=== PATIENT | male | born 1960 | race Caucasian/White ===

== ENCOUNTER 2024-08-16 12:36 | Outpatient (AMB) | payer OTHER, SELFPAY ==
--- NOTE | 2024-08-16 12:47 | A.OFFPC_ITS ---
Vital Signs 08/16/24 12:51 Height 5 ft 8.5 in Weight 227 lb 6 oz BMI 34.1 BP 140/90 H Blood Pressure Location Lt brachial Position Sitting Pulse 84 Pulse Source Pulse Oximeter Temp 97.3 F Temp Source Temporal Artery Scan Pulse Oximetry (%) 98 Oxygen Delivery Method Room Air Intake Visit Reasons: establish care Intake Note: Patient is a new patient here to establish care for wellness visit. Transferring care from Dr Gamaliel Guerrero ([facility]). Medical records have been requested and have not received. 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 Chief I Dispatcher: Not Required per policy Accompanied by: Self / Same As Patient Allergies No Known Allergies Allergy (Verified 08/16/24 13:14) Medication List - Last Reconciled 08/16/24 by COCO Salcido No Known Home Meds Tobacco use date assessed: 08/16/24 Dental Screening Dental Screen Date: 08/16/24 Did you have a dental visit in the last 12 months?: No Did you have a dental problem in the last 6 months where you did not have access to dental care?: No Was dental information given to patient?: No HPI establish care HPI Details Previous PCP: Gamaliel Last visit:12 years Last PE: Specialist: colonscopy OBGYN: n/a Past medical history: Hemrrhoids, 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 Reports that all the weight of transition was on his arm but he did not want to transitioned to fall so he did not move. Reports that the area seems to have gotten slightly bigger. Radiating pain down his arm when the areas squeezed. No discoloration noted. Mobile lump. soft tissue ultrasound of the anterior left forearm. Reports left shoulder pain with decreased ROM. Reports that he is unable to lift his arm above his head. Crepitus sound with range of motion intermittently. Reports that this has been going on for 4 years but it is getting worse. Reports that he could tell when the weather is changing because the pain increases. will get and xray of the shoulder. Reports that he is concerned about his weight as well. Reports that he purchase a treadmill but has not started using it as yet. Patient reports that he works all day by the time he gets home he is extremely tired. But he noticed that he has been putting on more weight and would like to lose it. Patient blood pressure was elevated in office. Patient reports that she checks his blood pressure at home often and it is usually in the 128/74 range. His blood pressure in office was 140/90 with a pulse of 84. We will continue to monitoring [facility] Medical History Hemorrhoids Leukemia Surgical History (Updated 08/16/24 @ 13:01 by JOSEPH Farr) History of colonoscopy Family History (Updated 08/16/24 @ 15:21 by COCO Salcido) Mother Diabetes Social History (Updated 08/16/24 @ 13:01 by JOSEPH Farr) Housing: House Alcohol intake: current Alcohol intake frequency: a few times a month Patient Tobacco Use Status: Former Tobacco user (2018) e-Cigarette/Vaping Use: Never Used Second Hand Smoke Exposure: No service: No Current occupational status: employed Current occupation: Auto dismateler Cognitive needs: No Hearing needs: No Vision needs: Yes (Reading glasses) Questionnaire PHQ-9 Over the last 2 weeks, how often have you been bothered by any of the following problems? 1. Little interest or pleasure in doing things: not at all 2. Feeling down, depressed, or hopeless: not at all 3. Trouble falling or staying asleep, or sleeping too much: not at all 4. Feeling tired or having little energy: several days 5. Poor appetite or overeating: not at all 6. Feeling bad about yourself - or that you are a failure or have let yourself or your family down: not at all 7. Trouble concentrating on things, such as reading the newspaper or watching television: not at all 8. Moving or speaking so slowly that other people could have noticed. Or the opposite - being so fidgety or restless that you have been moving around a lot more than usual: not at all 9. Thoughts that you would be better off or of hurting yourself in some way: not at all Total score: 1 Depression Screening Interpretation: Positive Depression Screening Done: Yes 56411 - PHQ-9 Billing: Yes Source: Developed by Drs. Matthew L. Alejandra Goldstein Kurt Kroenke and colleagues, with an educational etienne from [employer]. Thrive Questionnaire Date Thrive assessed: 08/16/24 I am a: Patient What is your living situation today?: I have a steady place to live Within the past 12 months, did the food you bought not last and you didn't have the money to get more?: Never true Within the past 12 months, did you worry whether your food would run out before you got money to buy more?: Never true Do you have trouble paying for medicines?: No Do you have trouble getting transportation to medical appointments?: No Do you have trouble paying your heating and electricity bill?: No Do you have trouble taking care of your child, family member or friend?: No Do you have trouble with day-to-day activities such as bathing, preparing meals, shopping, managing finances, etc.?: No Are you currently unemployed and looking for a job?: No Are you interested in more education?: No Please select the resources that you would like help with: None Currently or been in a relationship where the following occur: No concerns reported THRIVE Score: 0 AUDIT C Alcohol Use Questionnaire (AUDIT-C) 1. How often do you have a drink containing alcohol?: Monthly or less 2. How many drinks containing alcohol do you have on a typical day when you are drinking?: 1 or 2 Total Score: 1 PETRA-7 AMB Questionnaire PETRA-7 Date PETRA - 7 assessed: 08/16/24 Feeling nervous, anxious, or on edge: 0 = Not at all Not being able to stop or control worryin = Not at all Worrying too much about different things: 0 = Not at all Trouble relaxin = Not at all Being so restless that it is hard to sit still: 0 = Not at all Becoming easily annoyed or irritable: 0 = Not at all Feeling afraid as if something awful might happen: 0 = Not at all Total PETRA-7 score (0-4 normal; 5-9 mild; 10-14 moderate; 15-21 severe): 0 Source: Developed by Alejandra Worthy Kurt Kroenke and colleagues, with an educational etienne from [employer]. Review of Systems Const Denies headache(s) Eyes Denies loss of vision ENT Denies vertigo, Denies dizziness, Denies headache(s) and Denies sore throat Card Denies chest pain, Denies leg edema and Denies lightheadedness Resp Denies cough, Denies hemoptysis and Denies wheezing GI Denies abdominal pain, Denies melena, Denies constipation, Denies diarrhea and Denies vomiting Denies dysuria, Denies urinary frequency and Denies urinary urgency Musc Reports arthralgias (Left shoulder), Denies joint swelling, Reports limited range of motion (Left shoulder), Denies numbness, Reports stiffness (Left shoulder) and Denies tingling Skin/Breast Reports other (Lump to left inner forearm) Neuro Denies Abnormal speech present, Denies behavioral changes, Denies vertigo, Denies dizziness, Denies headache(s), Denies loss of vision, Denies memory loss, Denies numbness and Denies tingling Psych Denies anxiety, Denies behavioral changes, Denies depression, Denies memory loss and Denies panic attacks Erik/Lymph Denies easy bleeding and Denies easy bruising Aller/Immun Denies wheezing Physical exam (Primary Care) Vital Signs: Last Vital Signs Temp 97.3 F 08/16/24 12:51 Pulse 84 08/16/24 12:51 BP 140/90 H 08/16/24 12:51 Pulse Ox 98 08/16/24 12:51 Oxygen Delivery Method Room Air 08/16/24 12:51 BMI result Body Mass Index 34.1 Tobacco/Smoking Status: Tobacco use Status Tobacco use date assessed 08/16/24 08/16/24 13:03 Patient Tobacco Use Status Former Tobacco user (2018) 08/16/24 13:03 e-Cigarette/Vaping Use Never Used 08/16/24 13:03 PHQ-9: PHQ-9 Score PHQ-9: Total score 1 08/16/24 13:03 Depression Screening Interpretation: Positive Thrive Assessment: Date of Thrive Assessment Date Thrive assessed 08/16/24 08/16/24 13:03 Currently or been in a relationship where the following occur: No concerns reported Const General: healthy appearing, no acute distress, alert and awake Nutritional Appearance: well nourished Orientation/consciousness: oriented to person, oriented to place and oriented to time HENMT Ears: TM's normal bilaterally General nose exam: Normal nasal mucous membranes and turbinates present Eyes Conjunctivae: conjunctivae normal Sclerae: sclerae normal Pupils: Equal, round and reactive pupils present Neck Neck: Yes no lymphadenopathy and Yes no JVD Thyroid: Thyroid normal Carotids: no bruits Resp Effort & Inspection: normal respiratory effort and not tachypneic Auscultation: no crackles, no rales, no rhonchi and no wheezes Cardio Rate: regular rate Rhythm: regular rhythm Heart sounds: no murmurs and normal S1 and S2 GI Palpation (GI): Soft to palpation, nontender, no hepatomegaly and no splenomegaly Auscultation: normal bowel sounds Back/Spine/Pelvis Cervical Spine: No Cervical spine tenderness Thoracic/Lumbar Spine: No thoracic spinal tenderness and No lumbar spinal tenderness Skin General skin exam: no rashes or lesions noted and dry skin Neuro General: oriented to person, oriented to place and oriented to time Cranial nerves: Yes Equal, round and reactive pupils present Speech: No Abnormal speech present Gait exam (Neuro): Normal gait present Motor exam (neuro): no tremor noted Extrem Right upper extremity: full ROM Left upper extremity: shoulder/upper arm Details: abnormal ROM (Unable to lift arm above head, crepitus with range of motion intermittently); ROM limited Right lower extremity: full ROM; no edema Left lower extremity: full ROM; no edema Psych Mental Status: mental status grossly normal Speech and movement: Normal speech and movement present Affect: normal affect Attitude: cooperative Thought process: Normal thought process present Coding Level of Care Code New Pt Level 3 (42927) Diagnoses Hemorrhoids, unspecified hemorrhoid type K64.9 Hemorrhoid type: unspecified Localized swelling, mass and lump, left upper limb R22.32 Left shoulder pain, unspecified chronicity M25.512 Chronicity: unspecified Obesity (BMI 30.0-34.9) E66.811 Additional Codes PHQ-9 - 41732 - PHQ-9 Billing: Yes ([id number]) Time Spent (min) 33 Assessment & Plan Assessment & Plan (1) Hemorrhoids: Code(s): K64.9 - Unspecified hemorrhoids Category: Medical Qualifiers: Hemorrhoid type: unspecified Qualified Code(s): K64.9 - Unspecified hemorrhoids Plan: Stable. On and off (2) Localized swelling, mass and lump, left upper limb: Code(s): R22.32 - Localized swelling, mass and lump, left upper limb Category: Medical Plan: Soft tissue ultrasound ordered to further evaluate (3) Left shoulder pain: Code(s): M25.512 - Pain in left shoulder Category: Medical Qualifiers: Chronicity: unspecified Qualified Code(s): M25.512 - Pain in left shoulder Plan: Left shoulder x-ray ordered (4) Obesity (BMI 30.0-34.9): Code(s): E66.811 - Obesity, class 1 Category: Medical Plan: Encouraged to exercise for at least 30 minutes a day/5 days a week Healthy eating discussed. Encouraged to eat fruits/vegetables, protein- fish/baked chicken, and to avoid salty/fried foods, sweets, caffeine and carbohydrates. Encouraged to increase water intake 6-8 glasses a day Plan We will order labs and of the patient returned physical examination Orders: Orders Comprehensive Ber[place]. Panel Fast Today Z00.00 - Encounter for general adult medical examination without abnormal findings Lipid Panel Today Z00.00 - Encounter for general adult medical examination without abnormal findings Vitamin D 25-OH Total Today Z00.00 - Encounter for general adult medical examination without abnormal findings Glucose Fasting Today Z00.00 - Encounter for general adult medical examination without abnormal findings UA CC w/rflx Micro + Cult Today Z00.00 - Encounter for general adult medical examination without abnormal findings PSA,Total (Free>4and<10) Today Z00.00 - Encounter for general adult medical examination without abnormal findings XR shoulder LT min 2V Today M25.512 - Pain in left shoulder US extremity nonvascular Today R22.32 - Localized swelling, mass and lump, left upper limb Complete Blood Count Auto Diff Today Z00.00 - Encounter for general adult medical examination without abnormal findings TSH reflex Free T4 Today Z00.00 - Encounter for general adult medical examination without abnormal findings Medications: Discontinued hydroxyzine HCl Discontinued Reason: Patient Completed Course 25 mg PO BEDTIME 2 weeks 14 tabs 0RF G47.9 - Sleep disorder, unspecified albuterol sulfate 90 mcg/actuation Discontinued Reason: Patient Completed Course 1 inh inhalation QID PRN 6.7 grams 1RF shortness of breath or wheezing R06.00 - Dyspnea, unspecified
[2024-08-16 12:51] VITALS: BP 140/90; PULSE 84; TEMP 36.3; O2SAT 98; BMI 34.1
== END 2024-08-16 13:46 | disposition home or self-care (01) ==
LOC: HO.HMCH 12:37
PROVIDERS: PCP Internal Medicine Medical Oncology
DX: K64.9 Unspecified hemorrhoids (principal); E66.811 Obesity, class 1; Z68.34 Body mass index [BMI] 34.0-34.9, adult; R22.32 Localized swelling, mass and lump, left upper limb; M25.512 Pain in left shoulder

== ENCOUNTER → 2024-08-16 12:36 | Outpatient (BNVA) | payer OTHER, SELFPAY | PROVIDERS: PCP Internal Medicine Medical Oncology | DX: M25.512 Pain in left shoulder (principal); K64.9 Unspecified hemorrhoids; R22.32 Localized swelling, mass and lump, left upper limb; E66.811 Obesity, class 1; Z68.34 Body mass index [BMI] 34.0-34.9, adult | CPT/HCPCS: 96127; 99202 ==

== ENCOUNTER 2024-09-13 14:18 | Outpatient (REF) | payer OTHER, SELFPAY ==
--- NOTE | ~2024-09-13 | US_ITS ---
EXAMINATION: Ultrasound extremity, nonvascular. Limited CLINICAL INFORMATION: Localized swelling/mass/lump, left upper extremity. TECHNIQUE: Real-time ultrasound of the region of concern using a linear transducer with grayscale and color Doppler technique. COMPARISON: None FINDINGS: There is a well-defined, ovoid shaped, 1.5 x 1.2 x 1.5 cm, hypoechoic soft tissue lesion in the region of concern mid segment of the left forearm. There is flow on color Doppler interrogation. US/US extremity nonvascular IMPRESSION: 1.5 cm, nonspecific, solid lesion within the soft tissues left forearm. Consider benign versus malignant. Electronically signed by: Abisai Moralez MD 09/13/2024 02:54 PM EDT
--- NOTE | ~2024-09-13 | XR_ITS ---
EXAMINATION: XR SHOULDER, LEFT CLINICAL INFORMATION: M25.512 - Pain in left shoulder COMPARISON: None available. TECHNIQUE: AP external rotation, Grashey, scapular Y, and axillary views of the left shoulder. FINDINGS: No acute cortical disruption or malalignment. Focal well-corticated (3 mm calcification at the coracoid process. No lytic or blastic lesions. XR/XR shoulder LT min 2V IMPRESSION: Questionable calcific bursitis, subcoracoid. Electronically signed by: Abisai Moralez MD 09/13/2024 02:55 PM EDT
== END 2024-09-13 14:19 | disposition home or self-care (01) ==
LOC: HO.US 14:18
DX: R22.32 Localized swelling, mass and lump, left upper limb (principal); M25.512 Pain in left shoulder
CPT/HCPCS: 73030; 76882

== ENCOUNTER → 2024-09-13 14:22 | Outpatient (BNV) | payer OTHER, SELFPAY | PROVIDERS: Visit Provider Radiology Diagnostic Radiology | DX: M79.89 Other specified soft tissue disorders (principal); M25.512 Pain in left shoulder | CPT/HCPCS: 73030; 76882 ==

== ENCOUNTER 2024-09-27 06:25 | Outpatient (REF) | payer OTHER, SELFPAY ==
[2024-09-27 10:10] LABS: MANUAL DIFF FLAG NO
[2024-09-27 10:33] LABS: Appearance Urine Clear; Color Urine Yellow; Glucose Urine UA Negative (Negative); Leukocyte Esterase Urine Negative (Negative); Nitrite Urine Negative (Negative); PH 5.5 (5.0-9.0); Urine Blood Negative (Negative); Urine Ketones Negative (Negative); Urine Protein Negative (Neg-Trace)
[2024-09-27 10:37] LABS: Basophils Absolute Auto 0.1 X10*3/uL (0.0-0.2); Eosinophils Absolute Auto 0.2 X10*3/uL (0.0-0.4); Eosinophils Percent Auto 2.5 % (0-4); Hematocrit 49.9 % (42.0-52.0); Hemoglobin 16.1 g/dl (14.0-18.0); Imm Gran Abs Auto 0.02 X10*3/uL (0.00-0.03); Imm Gran Pct Auto 0.3 % (0.0-0.4); Lymphocytes Absolute Auto 2.2 X10*3/uL (1.2-4.9); Lymphocytes Percent Auto 31.9 % (20-40); Mean Corpuscular HGB Conc 32.3 g/dl (31.0-36.0); Mean Platelet Volume 12.4 fL (9.4-12.4); Monocytes Absolute Auto 0.6 X10*3/uL (0.1-1.2); Neutrophils Absolute Auto 3.7 x10*3/uL (2.0-8.3); Neutrophils Percent Auto 55.3 % (45-73); Platelet Count 219 X10*3/uL (160-400); Red Cell Distribution Width 12.8 % (11.0-16.0); White Blood Count 6.8 X10*3/uL (4.8-10.8)
[2024-09-27 11:01] LABS: PSA,Total (Free>4and<10) 0.39 ng/mL (0.00-4.00)
[2024-09-27 11:15] LABS: Alanine Aminotransferase 27 U/L (0-40); Albumin Level 4.4 g/dL (3.5-5.0); Alkaline Phosphatase 80 U/L (39-117); Anion Gap 11 (12-20); Aspartate Amino Transferase 28 U/L (5-37); Bilirubin Total 0.6 mg/dL (0.0-1.0); Blood Urea Nitrogen 14 mg/dL (9-16); Calcium 9.4 mg/dL (8.4-10.2); Carbon Dioxide 25 mmol/L (22-29); Chloride 106 mmol/L (96-108); Cholesterol 211 mg/dL (<200); Estimated Glomerular Filt Rate > 60; Glucose Fasting 137 mg/dL (60-99); HDL Cholesterol 45 mg/dL (>40); LDL Cholesterol Calculated 139 mg/dL (<100); Potassium 4.1 mmol/L (3.3-5.1); Sodium 138 mmol/L (135-145); TSH reflex Free T4 2.82 uIU/mL (0.32-4.0); Total Protein 7.6 g/dL (6.5-8.0); Triglycerides 138 mg/dL (<150); Vitamin D 25-OH Total 43.2 ng/mL (>30)
== END 2024-09-27 06:26 | disposition home or self-care (01) ==
LOC: HO.HMGCLDS 06:25
DX: Z00.00 Encounter for general adult medical examination without abnormal findings (principal)
CPT/HCPCS: 36415; 80053; 80061; 81003; 82306; 84153; 84443; 85025

== ENCOUNTER 2024-12-06 11:17 | Outpatient (REF) | payer OTHER, SELFPAY ==
[2024-12-06 13:34] LABS: Hemoglobin A1C 195.4052 umol/L; Total Hemoglobin (HGBA1C) 4178.1264 umol/L
== END 2024-12-06 11:18 | disposition home or self-care (01) ==
LOC: HO.HMGCLDS 11:17
DX: R73.01 Impaired fasting glucose (principal)
CPT/HCPCS: 36415; 83036

== ENCOUNTER 2024-12-13 14:13 | Outpatient (AMB) | payer OTHER, SELFPAY ==
[2024-12-13 14:23] VITALS: BP 164/90; PULSE 78; RESP 18; TEMP 36.3; O2SAT 94; BMI 33.3
--- NOTE | 2024-12-13 14:23 | A.OFFPC_ITS ---
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 Snellen: Right: Left: Corrected vision: STI screening: Colonoscopy:last one about 11 years ago. Reports that they all been good, reports that he will not dothis again. Reports that he has hemorrhoids and get blood every once in awhile so he wont to the cologuard neither. Pap Smer:n/a PHQ-9: Flu:does not usually take the flu vaccine COVID: had not had any of the vaccine and he is not interested in getting any Tdap: reports that he had this about 9 years ago Diet: Reports cutting out sweats and high cholesterol foods Exercise: He has been swimming in his pool. The patient is a 64-year-old male presenting for evaluation of hypertension and prediabetes management. He reports a recent increase in blood pressure, which he attributes to stress over the past few days, and has been monitoring his blood pressure at home, noting it to be lower than during clinic visits. The patient has a history of prediabetes, with a recent A1c level of 6.4%. He reports a significant reduction in soda consumption, switching to water, milk, and tea, which he believes has contributed to a slight weight loss, and notes that his blood glucose levels are higher in the morning but stabilize throughout the day. The patient has been diagnosed with calcified bursitis in the shoulder, resulting in reduced range of motion and intermittent pain, and has not undergone any physical therapy for this condition. The patient has a history of hyperlipidemia, with a total cholesterol level of 211 mg/dL and LDL cholesterol contributing to this elevation. He has made dietary changes, including increased fish consumption and reduced intake of fried foods, to manage his cholesterol levels. The patient has a history of COVID-19 infection, having contracted the virus twice, with the first episode being more severe, and has not received any COVID- 19 vaccinations. The patient reports hemorrhoids with occasional bleeding, which he is concerned may affect the results of a stool-based colon cancer screening test. pt for shoulder and already has an appt with Dr. Guevara for left forearm mass. Blood pressures at home: 121/60, 122/60, 136/70, 127/60, 124/57 [facility] Medical History (Updated 01/09/25 @ 22:52 by COCO Salcido) Lipoma of left forearm Hemorrhoids Leukemia Surgical History History of colonoscopy Family History Mother Diabetes Social History Housing: House Alcohol intake: current Alcohol intake frequency: a few times a month Patient Tobacco Use Status: Former Tobacco user (2018) e-Cigarette/Vaping Use: Never Used Second Hand Smoke Exposure: No service: No Current occupational status: employed Current occupation: Auto dismateler Cognitive needs: No Hearing needs: No Vision needs: Yes (Reading glasses) Questionnaire PHQ-9 Over the last 2 weeks, how often have you been bothered by any of the following problems? 1. Little interest or pleasure in doing things: not at all 2. Feeling down, depressed, or hopeless: not at all 3. Trouble falling or staying asleep, or sleeping too much: not at all 4. Feeling tired or having little energy: several days 5. Poor appetite or overeating: not at all 6. Feeling bad about yourself - or that you are a failure or have let yourself or your family down: not at all 7. Trouble concentrating on things, such as reading the newspaper or watching television: not at all 8. Moving or speaking so slowly that other people could have noticed. Or the opposite - being so fidgety or restless that you have been moving around a lot more than usual: not at all 9. Thoughts that you would be better off or of hurting yourself in some way: not at all Total score: 1 Depression Screening Interpretation: Positive Depression Screening Done: Yes Source: Developed by Drs. Matthew Goldstein, Alejandra Rodriguez, Adebayo Naranjo and colleagues, with an educational etienne from [employer]. Thrive Questionnaire Date Thrive assessed: 12/13/24 I am a: Patient What is your living situation today?: I have a steady place to live Within the past 12 months, did the food you bought not last and you didn't have the money to get more?: Never true Within the past 12 months, did you worry whether your food would run out before you got money to buy more?: Never true Do you have trouble paying for medicines?: No Do you have trouble getting transportation to medical appointments?: No Do you have trouble paying your heating and electricity bill?: No Do you have trouble taking care of your child, family member or friend?: No Do you have trouble with day-to-day activities such as bathing, preparing meals, shopping, managing finances, etc.?: No Are you currently unemployed and looking for a job?: No Are you interested in more education?: No Please select the resources that you would like help with: None Currently or been in a relationship where the following occur: No concerns reported THRIVE Score: 0 AUDIT C Alcohol Use Questionnaire (AUDIT-C) 1. How often do you have a drink containing alcohol?: Monthly or less 2. How many drinks containing alcohol do you have on a typical day when you are drinking?: 1 or 2 3. How often do you have six or more drinks on one occasion?: Never Total Score: 1 PETRA-7 AMB Questionnaire PETRA-7 Date PETRA - 7 assessed: 12/13/24 Feeling nervous, anxious, or on edge: 0 = Not at all Not being able to stop or control worryin = Not at all Worrying too much about different things: 0 = Not at all Trouble relaxin = Not at all Being so restless that it is hard to sit still: 0 = Not at all Becoming easily annoyed or irritable: 0 = Not at all Feeling afraid as if something awful might happen: 0 = Not at all Total PETRA-7 score (0-4 normal; 5-9 mild; 10-14 moderate; 15-21 severe): 0 Source: Developed by Drs. Matthew Goldstein, Alejandra Rodriguez, Adebayo Naranjo and colleagues, with an educational etienne from [employer]. Review of Systems Const Denies headache(s) Eyes Denies loss of vision ENT Denies vertigo, Denies dizziness, Denies headache(s) and Denies sore throat Card Denies chest pain, Denies leg edema and Denies lightheadedness Resp Denies cough, Denies hemoptysis and Denies wheezing GI Denies abdominal pain, Denies melena, Denies constipation, Denies diarrhea and Denies vomiting Denies dysuria, Denies urinary frequency and Denies urinary urgency Musc Reports arthralgias (Left shoulder), Denies joint swelling, Denies numbness, Reports stiffness (Left shoulder-unable to raise arm above head) and Denies tingling Skin/Breast Reports lesions (Left inner forearm lump) Neuro Denies Abnormal speech present, Denies behavioral changes, Denies vertigo, Denies dizziness, Denies headache(s), Denies loss of vision, Denies memory loss, Denies numbness and Denies tingling Psych Denies anxiety, Denies behavioral changes, Denies depression, Denies memory loss and Denies panic attacks Erik/Lymph Denies easy bleeding and Denies easy bruising Aller/Immun Denies wheezing Physical exam (Primary Care) Vital Signs: Last Vital Signs Temp 97.3 F 12/13/24 14:23 Pulse 78 12/13/24 14:23 Resp 18 12/13/24 14:23 BP 164/90 H 12/13/24 14:23 Pulse Ox 94 12/13/24 14:23 Oxygen Delivery Method Room Air 12/13/24 14:23 BMI result Body Mass Index 33.3 Tobacco/Smoking Status: Tobacco use Status Tobacco use date assessed 12/13/24 12/13/24 14:31 Patient Tobacco Use Status Former Tobacco user (2018) 12/13/24 14:31 e-Cigarette/Vaping Use Never Used 12/13/24 14:31 PHQ-9: PHQ-9 Score PHQ-9: Total score 1 12/13/24 15:00 Depression Screening Interpretation: Positive Thrive Assessment: Date of Thrive Assessment Date Thrive assessed 12/13/24 12/13/24 14:31 Currently or been in a relationship where the following occur: No concerns reported Const General: healthy appearing, no acute distress, alert and awake Nutritional Appearance: well nourished Orientation/consciousness: oriented to person, oriented to place and oriented to time HENMT Ears: TM's normal bilaterally General nose exam: Normal nasal mucous membranes and turbinates present Eyes Conjunctivae: conjunctivae normal Sclerae: sclerae normal Pupils: Equal, round and reactive pupils present Neck Neck: Yes no lymphadenopathy and Yes no JVD Thyroid: Thyroid normal Carotids: no bruits Resp Effort & Inspection: normal respiratory effort and not tachypneic Auscultation: no crackles, no rales, no rhonchi and no wheezes Cardio Rate: regular rate Rhythm: regular rhythm Heart sounds: no murmurs and normal S1 and S2 GI Palpation (GI): Soft to palpation, nontender, no hepatomegaly and no splenomegaly Auscultation: normal bowel sounds General: Yes no CVA tenderness Back/Spine/Pelvis Back: no CVA tenderness Thoracic/Lumbar Spine: thoracic and lumbar spine normal to inspection Skin General skin exam: dry skin Lesions: lesion noted (Lump at the inner forearm) Neuro General: oriented to person, oriented to place and oriented to time Cranial nerves: Yes Equal, round and reactive pupils present Speech: No Abnormal speech present Gait exam (Neuro): Normal gait present Motor exam (neuro): no tremor noted Extrem Right upper extremity: full ROM Left upper extremity: shoulder/upper arm Details: tenderness (Unable to raise arm above it) Location: over the coracoid process, abnormal ROM and crepitus (With range of motion) Right lower extremity: full ROM; no edema Left lower extremity: full ROM; no edema Psych Mental Status: mental status grossly normal Speech and movement: Normal speech and movement present Affect: normal affect Attitude: cooperative Thought process: Normal thought process present Results Reviewed Results Reviewed: Laboratory Tests 09/27/24 09/27/24 12/06/24 06:21 06:31 11:24 WBC 6.8 RBC 5.20 Hgb 16.1 Hct 49.9 MCV 96.0 MCH 31.0 MCHC 32.3 RDW 12.8 Plt Count 219 Sodium 138 Potassium 4.1 Chloride 106 Carbon Dioxide 25 Anion Gap 11 L BUN 14 Creatinine 0.96 Estim Creat Clear Calc Not Reportable Estimated GFR > 60 Fasting Glucose 137 H Hemoglobin A1c % 6.4 H Calcium 9.4 Total Bilirubin 0.6 AST 28 ALT 27 Alkaline Phosphatase 80 Total Protein 7.6 Albumin 4.4 Triglycerides 138 Cholesterol 211 H LDL Cholesterol, Calc 139 H HDL Cholesterol 45 Total PSA 0.39 25-OH Vitamin D Total 43.2 TSH 2.82 Urine Color Yellow Urine Appearance Clear Urine pH 5.5 Ur Specific [place] 1.010 Urine Protein Negative Urine Glucose (UA) Negative Urine Ketones Negative Urine Blood Negative Urine Nitrite Negative Ur Leukocyte Esterase Negative Coding Level of Care Code Est Pt Prev Care 40-64y(18592) Diagnoses Annual physical exam Z00.00 Hemorrhoids, unspecified hemorrhoid type K64.9 Hemorrhoid type: unspecified Localized swelling, mass and lump, left upper limb R22.32 Left shoulder pain, unspecified chronicity M25.512 Chronicity: unspecified Obesity (BMI 30.0-34.9) E66.811 Hypertension, unspecified type I10 Hypertension type: unspecified Hyperlipidemia, unspecified hyperlipidemia type E78.5 Hyperlipidemia type: unspecified Prediabetes R73.03 Lipoma of left forearm D17.22 Time Spent (min) 41 Assessment & Plan Assessment & Plan (1) Annual physical exam: Code(s): Z00.00 - Encounter for general adult medical examination without abnormal findings Category: Medical Plan: Preventative guidelines and recent labs reviewed with the patient. His last colonoscopy was about 11 years ago. Reports that they all been good prior, and he does not plan on doing this test again. Reports that he has hemorrhoids and get blood in his stool every once in awhile so he won't do the cologuard neither. (2) Hemorrhoids: Code(s): K64.9 - Unspecified hemorrhoids Category: Medical Qualifiers: Hemorrhoid type: unspecified Qualified Code(s): K64.9 - Unspecified hemorrhoids Plan: Stable. On and off. Encouraged Sitz bath and preparation H ointment as needed (3) Localized swelling, mass and lump, left upper limb: Code(s): R22.32 - Localized swelling, mass and lump, left upper limb Category: Medical Plan: Left upper arm 1.5 cm, nonspecific, solid lesion with the soft tissues left forearm. Consider benign versus malignant on 09/13/2024 ultrasound. The patient was referred to General surgery prior and already has an appointment. (4) Left shoulder pain: Code(s): M25.512 - Pain in left shoulder Category: Medical Qualifiers: Chronicity: unspecified Qualified Code(s): M25.512 - Pain in left shoulder Plan: X-ray of left shoulder showed a questionable calcified bursitis, subcoracoid. We will refer the patient to Orthopedics. (5) Obesity (BMI 30.0-34.9): Code(s): E66.811 - Obesity, class 1 Category: Medical Plan: Encouraged to exercise for at least 30 minutes a day/5 days a week Healthy eating discussed. Encouraged to eat fruits/vegetables, protein- fish/baked chicken, and to avoid salty/fried foods, sweets, caffeine and carbohydrates. Encouraged to increase water intake 6-8 glasses a day (6) HTN (hypertension): Code(s): I10 - Essential (primary) hypertension Category: Medical Qualifiers: Hypertension type: unspecified Qualified Code(s): I10 - Essential (primary) hypertension Plan: Blood pressure 164/90 in office. Recorded blood pressures at home are significantly lower. We will continue to monitor blood pressure. Encouraged low-salt diet. Decrease caffeine intake. (7) HLD (hyperlipidemia): Code(s): E78.5 - Hyperlipidemia, unspecified Category: Medical Qualifiers: Hyperlipidemia type: unspecified Qualified Code(s): E78.5 - Hyperlipidemia, unspecified Plan: Total cholesterol 211 and LDL 139 Discussed lifestyle modifications including dietary changes and physical activity (8) Prediabetes: Code(s): R73.03 - Prediabetes Category: Medical Plan: Fasting glucose was 137. A1c done in office was 6.4% Discussed with the patient that he is at the prediabetic range and needs to cut back on sugars and carbohydrate We will check fasting glucose and A1c in 3 months (9) Lipoma of left forearm: Code(s): D17.22 - Benign lipomatous neoplasm of skin and subcutaneous tissue of left arm Category: Medical Plan: Follow up with General surgery as scheduled Plan The patient will continue monitoring his blood pressure at home, focusing on stress management to help control hypertension. For prediabetes, he is advised to maintain dietary changes, including reduced soda intake and increased water consumption, and to continue monitoring blood glucose levels. Regarding calcified bursitis, a referral to orthopedics for evaluation and potential physical therapy is recommended to improve shoulder range of motion and manage pain. The patient is encouraged to continue swimming as a form of exercise. For hyperlipidemia, dietary modifications such as increased fish intake and reduced fried foods are advised, with a follow-up on cholesterol levels in a few months. The patient is advised to consider an eye examination due to the lack of recent check-ups. He is also informed about the potential impact of hemorrhoids on s tool-based colon cancer screening results and the option to avoid such tests if concerned about false positives. Patient was informed and verbally consented to the use of an ambient scribe for clinic note documentation during this visit. Orders: Orders Hemoglobin A1c 3 Months R73.01 - Impaired fasting glucose, E66.811 - Obesity, class 1, E78.5 - Hyperlipidemia, unspecified, R73.03 - Prediabetes Comprehensive [place]. Panel Fast 3 Months R73.01 - Impaired fasting glucose, E66.811 - Obesity, class 1, E78.5 - Hyperlipidemia, unspecified, R73.03 - Prediabetes Lipid Panel 3 Months R73.01 - Impaired fasting glucose, E66.811 - Obesity, class 1, E78.5 - Hyperlipidemia, unspecified, R73.03 - Prediabetes Complete Blood Count Auto Diff 3 Months R73.01 - Impaired fasting glucose, E66.811 - Obesity, class 1, E78.5 - Hyperlipidemia, unspecified, R73.03 - Prediabetes UA CC w/rflx Micro + Cult 3 Months R73.01 - Impaired fasting glucose, E66.811 - Obesity, class 1, E78.5 - Hyperlipidemia, unspecified, R73.03 - Prediabetes Patient Instructions: - Monitor blood pressure at home regularly and manage stress to help control hypertension. - Maintain dietary changes, including reducing soda intake and increasing water consumption, to manage prediabetes. - Follow up with orthopedics for evaluation of calcified bursitis and consider physical therapy. - Continue swimming as a form of exercise. - Follow dietary modifications to manage cholesterol levels and plan for a follow-up in a few months. - Consider scheduling an eye examination due to the lack of recent check-ups.
== END 2024-12-13 15:32 | disposition home or self-care (01) ==
LOC: HO.HMCH 14:14
DX: Z00.00 Encounter for general adult medical examination without abnormal findings (principal); K64.9 Unspecified hemorrhoids; E66.811 Obesity, class 1; Z68.33 Body mass index [BMI] 33.0-33.9, adult; R22.32 Localized swelling, mass and lump, left upper limb; M25.512 Pain in left shoulder; I10 Essential (primary) hypertension; E78.5 Hyperlipidemia, unspecified; R73.03 Prediabetes; D17.22 Benign lipomatous neoplasm of skin and subcutaneous tissue of left arm

== ENCOUNTER → 2024-12-13 14:13 | Outpatient (BNVA) | payer OTHER, SELFPAY | DX: Z00.00 Encounter for general adult medical examination without abnormal findings (principal); K64.9 Unspecified hemorrhoids; R22.32 Localized swelling, mass and lump, left upper limb; M25.512 Pain in left shoulder; E66.811 Obesity, class 1; Z68.33 Body mass index [BMI] 33.0-33.9, adult; I10 Essential (primary) hypertension; E78.5 Hyperlipidemia, unspecified; R73.03 Prediabetes; D17.22 Benign lipomatous neoplasm of skin and subcutaneous tissue of left arm; Z13.31 Encounter for screening for depression; Z13.39 Encounter for screening examination for other mental health and behavioral disorders | CPT/HCPCS: 99396 ==

== ENCOUNTER 2025-01-03 13:45 | Outpatient (AMB) | payer OTHER, SELFPAY ==
--- NOTE | 2025-01-03 13:47 | MHC.OFFVIS ---
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 Present for 2-3yrs. Patient c/o: started off as a pea size growth. No hx of skin ca. 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 He said he has noticed this for 3 years now. He says this started as a small pea like, but he does increased in size over the years. He therefore wants this removed. He describes discomfort in the area. [facility] Medical History (Updated 01/03/25 @ 14:01 by Pramod Guevara MD) Lipoma of left forearm Hemorrhoids Leukemia Surgical History History of colonoscopy Family History Mother Diabetes Social History Housing: House Alcohol intake: current Alcohol intake frequency: a few times a month Patient Tobacco Use Status: Former Tobacco user (2018) e-Cigarette/Vaping Use: Never Used Second Hand Smoke Exposure: No service: No Current occupational status: employed Current occupation: Auto dismateler Cognitive needs: No Hearing needs: No Vision needs: Yes (Reading glasses) Review of Systems Const Denies chills and Denies fever(s) Card Denies chest pain, Denies dyspnea and Denies dyspnea on exertion Resp Denies cough, Denies dyspnea and Denies dyspnea on exertion GI Denies hematochezia and Denies change in bowel habits Denies hematuria and Denies difficulty urinating Musc Denies back pain and Denies limited range of motion Neuro Denies focal weakness and Denies convulsions Psych Denies depression and Denies mood swings Physical Exam Vital Signs: Last Vital Signs Pulse 85 01/03/25 13:53 BP 143/67 H 08/25/25 13:53 BMI result Body Mass Index 33.1 Const General: comfortable and no acute distress Orientation/consciousness: patient oriented x3 Neck Neck: Yes no lymphadenopathy Resp Auscultation: clear to auscultation bilaterally Cardio Rhythm: regular rhythm GI Palpation (GI): Soft to palpation, nontender and no guarding Neuro General: patient oriented x3 Extrem Other: Left forearm with note of a lipomatous mass in the volar aspect, 2 cm in size, mobile and well-defined Assessment & Plan Assessment & Plan (1) Lipoma of left forearm: Code(s): D17.22 - Benign lipomatous neoplasm of skin and subcutaneous tissue of left arm Category: Medical Plan: He has this lipomatous mass on the left forearm as described above . I explained the technique of excision under local anesthesia. I reviewed the risks including but not limited to bleeding, infections,tendon or nerve injury, as well as the benefits and alternatives. He says he understands and wants to proceed This will be done in the office on his next visit. His was with him during the visit. Coding Level of Care Code New Pt Level 3 (28876) Diagnoses Lipoma of left forearm D17.22
[2025-01-03 13:53] VITALS: BP 143/67; PULSE 85; BMI 33.1
== END 2025-01-03 14:03 | disposition home or self-care (01) ==
LOC: HO.HGS 13:46
PROVIDERS: Visit Provider Surgery
DX: D17.22 Benign lipomatous neoplasm of skin and subcutaneous tissue of left arm (principal)
CPT/HCPCS: 99203

== ENCOUNTER → 2025-01-03 13:45 | Outpatient (BNVA) | payer OTHER, SELFPAY | PROVIDERS: Visit Provider Surgery | DX: D17.22 Benign lipomatous neoplasm of skin and subcutaneous tissue of left arm (principal) | CPT/HCPCS: 99202 ==

== ENCOUNTER 2025-03-07 08:44 | Outpatient (REF) | payer OTHER, SELFPAY ==
[2025-03-07 10:36] LABS: MANUAL DIFF FLAG NO
[2025-03-07 10:49] LABS: Hematocrit 48.4 % (42.0-52.0); Hemoglobin 16.2 g/dl (14.0-18.0); Imm Gran Abs Auto 0.02 X10*3/uL (0.00-0.03); Imm Gran Pct Auto 0.3 % (0.0-0.4); Lymphocytes Absolute Auto 1.7 X10*3/uL (1.2-4.9); Mean Corpuscular HGB Conc 33.5 g/dl (31.0-36.0); Mean Corpuscular Hemoglobin 31.9 pg (27.0-33.0); Mean Corpuscular Volume 95.3 fL (80.0-98.0); NRBC Abs Auto 0.000 X10*3/uL (0.0-0.012); NRBC Pct Auto 0.0 /100WBC (0.0-0.2); Platelet Count 191 X10*3/uL (160-400); Red Blood Count 5.08 X10*6/uL (4.60-5.80); White Blood Count 6.7 X10*3/uL (4.8-10.8)
[2025-03-07 10:51] LABS: Appearance Urine Clear; Glucose Urine UA Negative (Negative); PH 5.5 (5.0-9.0); Specific Gravity - Urine 1.010 (1.005-1.025)
[2025-03-07 11:11] LABS: Alanine Aminotransferase 54 U/L (0-40); Albumin Level 4.6 g/dL (3.5-5.0); Alkaline Phosphatase 75 U/L (39-117); Anion Gap 11 (12-20); Aspartate Amino Transferase 35 U/L (5-37); Blood Urea Nitrogen 12 mg/dL (9-16); Calcium 9.3 mg/dL (8.4-10.2); Carbon Dioxide 25 mmol/L (22-29); Chloride 108 mmol/L (96-108); Cholesterol 197 mg/dL (<200); Estimated Glomerular Filt Rate > 60; HDL Cholesterol 44 mg/dL (>40); Potassium 4.8 mmol/L (3.3-5.1); Sodium 139 mmol/L (135-145); Total Protein 7.3 g/dL (6.5-8.0); Triglycerides 76 mg/dL (<150)
== END 2025-03-07 08:45 | disposition home or self-care (01) ==
LOC: HO.HMGCLDS 08:44
DX: R73.01 Impaired fasting glucose (principal); E66.811 Obesity, class 1; R73.03 Prediabetes; E78.5 Hyperlipidemia, unspecified
CPT/HCPCS: 36415; 80053; 80061; 81003; 83036; 85025

== ENCOUNTER 2025-03-21 10:40 | Outpatient (AMB) | payer OTHER, SELFPAY ==
[2025-03-21 10:42] VITALS: BP 140/82; PULSE 77; TEMP 36.3; O2SAT 96; BMI 31.8
--- NOTE | 2025-03-21 10:42 | MHC.PC.OV ---
Vital Signs 03/21/25 10:42 Height 5 ft 8.5 in Weight 212 lb 4 oz BMI 31.8 BP 140/82 H Blood Pressure Location Rt brachial Position Sitting Pulse 77 Pulse Source Pulse Oximeter Temp 97.3 F Temp Source Temporal Artery Scan Pulse Oximetry (%) 96 Oxygen Delivery Method Room Air Intake Visit Reasons: hld/htn/prediabetes Bowl Sander Required: No Accompanied by: Allergies No Known Allergies Allergy (Verified 03/21/25 11:00) Medication List - Last Reconciled 03/21/25 by COCO Salcido No Known Home Meds Tobacco use date assessed: 12/13/24 Dental Screening Dental Screen Date: 03/21/25 Did you have a dental visit in the last 12 months?: No Did you have a dental problem in the last 6 months where you did not have access to dental care?: No Was dental information given to patient?: No HPI hld/htn/prediabetes HPI Details The patient is a 65-year-old male presenting for a follow-up visit for management of diet, weight loss, and review of recent lab results. He reports having lost at least 10 pounds. His current diet is high in protein, consisting of baked fish, skinless chicken, broccoli, and about four hard-boiled eggs a day, and he is limiting his carbohydrate intake. He has experienced constipation, which is thought to be from the lack of fiber in his diet. Recent lab work showed his A1c has improved, decreasing from 6.4% to 6.1%. The patient reports occasionally checking his A1c at home, with results around 5.7% to 6.0%. His triglycerides have improved due to cutting down on carbohydrates, but his cholesterol levels have not changed significantly. His liver function tests are slightly elevated. The patient's blood pressure tends to run high during office visits, but he does not check it at home. Regarding substance use, he drinks beer daily. He reports feeling more energetic and less draggy since losing weight. [facility] Medical History Lipoma of left forearm Hemorrhoids Leukemia Surgical History History of colonoscopy Family History Mother Diabetes Social History Housing: House Alcohol intake: current Alcohol intake frequency: a few times a month Patient Tobacco Use Status: Former Tobacco user e-Cigarette/Vaping Use: Never Used Second Hand Smoke Exposure: No service: No Current occupational status: employed Current occupation: Auto dismateler Cognitive needs: No Hearing needs: No Vision needs: Yes (Reading glasses) Questionnaire PHQ-9 Over the last 2 weeks, how often have you been bothered by any of the following problems? 1. Little interest or pleasure in doing things: not at all 2. Feeling down, depressed, or hopeless: not at all 3. Trouble falling or staying asleep, or sleeping too much: not at all 4. Feeling tired or having little energy: several days 5. Poor appetite or overeating: not at all 6. Feeling bad about yourself - or that you are a failure or have let yourself or your family down: not at all 7. Trouble concentrating on things, such as reading the newspaper or watching television: not at all 8. Moving or speaking so slowly that other people could have noticed. Or the opposite - being so fidgety or restless that you have been moving around a lot more than usual: not at all 9. Thoughts that you would be better off or of hurting yourself in some way: not at all Total score: 1 Depression Screening Interpretation: Positive Depression Screening Done: Yes Source: Developed by Drs. Matthew Goldstein, Alejandra Rodriguez, Adebayo Naranjo and colleagues, with an educational etienne from [employer]. Thrive Questionnaire Date Thrive assessed: 08/16/24 I am a: Patient What is your living situation today?: I have a steady place to live Within the past 12 months, did the food you bought not last and you didn't have the money to get more?: Never true Within the past 12 months, did you worry whether your food would run out before you got money to buy more?: Never true Do you have trouble paying for medicines?: No Do you have trouble getting transportation to medical appointments?: No Do you have trouble paying your heating and electricity bill?: No Do you have trouble taking care of your child, family member or friend?: No Do you have trouble with day-to-day activities such as bathing, preparing meals, shopping, managing finances, etc.?: No Are you currently unemployed and looking for a job?: No Are you interested in more education?: No Please select the resources that you would like help with: None Currently or been in a relationship where the following occur: No concerns reported THRIVE Score: 0 AUDIT C Alcohol Use Questionnaire (AUDIT-C) 1. How often do you have a drink containing alcohol?: Monthly or less 2. How many drinks containing alcohol do you have on a typical day when you are drinking?: 1 or 2 3. How often do you have six or more drinks on one occasion?: Never Total Score: 1 PETRA-7 AMB Questionnaire PETRA-7 Date PETRA - 7 assessed: 12/13/24 Feeling nervous, anxious, or on edge: 0 = Not at all Not being able to stop or control worryin = Not at all Worrying too much about different things: 0 = Not at all Trouble relaxin = Not at all Being so restless that it is hard to sit still: 0 = Not at all Becoming easily annoyed or irritable: 0 = Not at all Feeling afraid as if something awful might happen: 0 = Not at all Total PETRA-7 score (0-4 normal; 5-9 mild; 10-14 moderate; 15-21 severe): 0 Source: Developed by Drs. Matthew Goldstein, Alejandra Rodriguez, Adebayo Naranjo and colleagues, with an educational etienne from [employer]. Review of Systems Const Denies headache(s) Eyes Denies loss of vision ENT Denies vertigo, Denies dizziness, Denies headache(s) and Denies sore throat Card Denies chest pain, Denies leg edema and Denies lightheadedness Resp Denies cough, Denies hemoptysis and Denies wheezing GI Denies abdominal pain, Denies melena, Denies constipation, Denies diarrhea and Denies vomiting Denies dysuria, Denies urinary frequency and Denies urinary urgency Musc Reports arthralgias (Left shoulder), Denies joint swelling, Denies numbness, Reports stiffness (Left shoulder-unable to raise arm above head) and Denies tingling Skin/Breast Reports lesions (Left inner forearm lump) Neuro Denies Abnormal speech present, Denies behavioral changes, Denies vertigo, Denies dizziness, Denies headache(s), Denies loss of vision, Denies memory loss, Denies numbness and Denies tingling Psych Denies anxiety, Denies behavioral changes, Denies depression, Denies memory loss and Denies panic attacks Erik/Lymph Denies easy bleeding and Denies easy bruising Aller/Immun Denies wheezing Physical exam (Primary Care) Vital Signs: Last Vital Signs Temp 97.3 F 03/21/25 10:42 Pulse 77 03/21/25 10:42 BP 140/82 H 03/21/25 10:42 Pulse Ox 96 03/21/25 10:42 Oxygen Delivery Method Room Air 03/21/25 10:42 BMI result Body Mass Index 31.8 Tobacco/Smoking Status: Tobacco use Status Tobacco use date assessed 12/13/24 03/21/25 10:48 Patient Tobacco Use Status Former Tobacco user 03/21/25 10:48 e-Cigarette/Vaping Use Never Used 03/21/25 10:48 PHQ-9: PHQ-9 Score PHQ-9: Total score 1 03/28/25 23:40 Depression Screening Interpretation: Positive Thrive Assessment: Date of Thrive Assessment Date Thrive assessed 08/16/24 03/21/25 10:48 Currently or been in a relationship where the following occur: No concerns reported Const General: healthy appearing, no acute distress, alert and awake Nutritional Appearance: well nourished Orientation/consciousness: oriented to person, oriented to place and oriented to time HENMT Ears: TM's normal bilaterally General nose exam: Normal nasal mucous membranes and turbinates present Eyes Conjunctivae: conjunctivae normal Sclerae: sclerae normal Pupils: Equal, round and reactive pupils present Neck Neck: Yes no lymphadenopathy and Yes no JVD Thyroid: Thyroid normal Carotids: no bruits Resp Effort & Inspection: normal respiratory effort and not tachypneic Auscultation: no crackles, no rales, no rhonchi and no wheezes Cardio Rate: regular rate Rhythm: regular rhythm Heart sounds: no murmurs and normal S1 and S2 GI Palpation (GI): Soft to palpation, nontender, no hepatomegaly and no splenomegaly Auscultation: normal bowel sounds General: Yes no CVA tenderness Back/Spine/Pelvis Back: no CVA tenderness Thoracic/Lumbar Spine: thoracic and lumbar spine normal to inspection Skin General skin exam: dry skin Lesions: lesion noted (Lump at the inner forearm) Neuro General: oriented to person, oriented to place and oriented to time Cranial nerves: Yes Equal, round and reactive pupils present Speech: No Abnormal speech present Gait exam (Neuro): Normal gait present Motor exam (neuro): no tremor noted Extrem Right upper extremity: full ROM Left upper extremity: shoulder/upper arm Details: tenderness (Unable to raise arm above it) Location: over the coracoid process, abnormal ROM and crepitus (With range of motion) Right lower extremity: full ROM; no edema Left lower extremity: full ROM; no edema Psych Mental Status: mental status grossly normal Speech and movement: Normal speech and movement present Affect: normal affect Attitude: cooperative Thought process: Normal thought process present Results Reviewed Results Reviewed: Laboratory Tests 03/07/25 03/07/25 03/07/25 08:45 08:48 08:55 WBC 6.7 RBC 5.08 Hgb 16.2 Hct 48.4 MCV 95.3 MCH 31.9 MCHC 33.5 RDW 12.6 Plt Count 191 Sodium 139 Potassium 4.8 Chloride 108 Carbon Dioxide 25 Anion Gap 11 L BUN 12 Creatinine 0.88 Estimated GFR > 60 Fasting Glucose 129 H Estimat Average Glucose 128 Hemoglobin A1c % 6.1 H Calcium 9.3 Total Bilirubin 0.6 AST 35 ALT 54 H Alkaline Phosphatase 75 Total Protein 7.3 Albumin 4.6 Triglycerides 76 Cholesterol 197 LDL Cholesterol, Calc 138 H HDL Cholesterol 44 Urine Color Yellow Urine Appearance Clear Urine pH 5.5 Ur Specific [place] 1.010 Urine Protein Negative Urine Glucose (UA) Negative Urine Ketones Negative Urine Blood Negative Urine Nitrite Negative Ur Leukocyte Esterase Negative Coding Level of Care Code Est Pt Level 4 (94858) Diagnoses Hemorrhoids, unspecified hemorrhoid type K64.9 Hemorrhoid type: unspecified Localized swelling, mass and lump, left upper limb R22.32 Left shoulder pain, unspecified chronicity M25.512 Chronicity: unspecified Obesity (BMI 30.0-34.9) E66.811 Hypertension, unspecified type I10 Hypertension type: unspecified Hyperlipidemia, unspecified hyperlipidemia type E78.5 Hyperlipidemia type: unspecified Prediabetes R73.03 Lipoma of left forearm D17.22 Time Spent (min) 39 Assessment & Plan Assessment & Plan (1) Hemorrhoids: Code(s): K64.9 - Unspecified hemorrhoids Category: Medical Qualifiers: Hemorrhoid type: unspecified Qualified Code(s): K64.9 - Unspecified hemorrhoids Plan: Stable. On and off. Encouraged Sitz bath and preparation H ointment as needed (2) Localized swelling, mass and lump, left upper limb: Code(s): R22.32 - Localized swelling, mass and lump, left upper limb Category: Medical Plan: Left upper arm 1.5 cm, nonspecific, soft lesion with the soft tissues left forearm. Consider benign versus malignant on 09/13/2024 ultrasound. The patient was referred and evaluated by General surgery prior and already has an appointment. (3) Left shoulder pain: Code(s): M25.512 - Pain in left shoulder Category: Medical Qualifiers: Chronicity: unspecified Qualified Code(s): M25.512 - Pain in left shoulder Plan: X-ray of left shoulder showed a questionable calcified bursitis, subcoracoid. He was referred to Orthopedics. (4) Obesity (BMI 30.0-34.9): Code(s): E66.811 - Obesity, class 1 Category: Medical Plan: Encouraged to exercise for at least 30 minutes a day/5 days a week Healthy eating discussed. Encouraged to eat fruits/vegetables, protein-fish/baked chicken, and to avoid salty/fried foods, sweets, caffeine and carbohydrates. Encouraged to increase water intake 6-8 glasses a day (5) HTN (hypertension): Code(s): I10 - Essential (primary) hypertension Category: Medical Qualifiers: Hypertension type: unspecified Qualified Code(s): I10 - Essential (primary) hypertension Plan: Blood pressure 140/82 mm Hg in office. Recorded blood pressures at home are significantly lower. We will continue to monitor blood pressure. Encouraged low-salt diet. Decrease caffeine intake. (6) HLD (hyperlipidemia): Code(s): E78.5 - Hyperlipidemia, unspecified Category: Medical Qualifiers: Hyperlipidemia type: unspecified Qualified Code(s): E78.5 - Hyperlipidemia, unspecified Plan: Total cholesterol 211 and LDL 139 Discussed lifestyle modifications including dietary changes and physical activity (7) Prediabetes: Code(s): R73.03 - Prediabetes Category: Medical Plan: Fasting glucose was 137. A1c done in office was 6.4% Discussed with the patient that he is at the prediabetic range and needs to cut back on sugars and carbohydrate We will check fasting glucose and A1c in 3 months (8) Lipoma of left forearm: Code(s): D17.22 - Benign lipomatous neoplasm of skin and subcutaneous tissue of left arm Category: Medical Plan: It was evaluated by General surgery. Plans to move forward with surgery. Plan The patient will continue monitoring his blood pressure at home, focusing on stress management to help control hypertension. For prediabetes, he is advised to maintain dietary changes, including reduced soda intake and increased water consumption, and to continue monitoring blood glucose levels. Regarding calcified bursitis, a referral to orthopedics for evaluation and potential physical therapy is recommended to improve shoulder range of motion and manage pain. The patient is encouraged to continue swimming as a form of exercise. For hyperlipidemia, dietary modifications such as increased fish intake and reduced fried foods are advised, with a follow-up on cholesterol levels in a few months. The patient is advised to consider an eye examination due to the lack of recent check-ups. He is also informed about the potential impact of hemorrhoids on stool-based colon cancer screening results and the option to avoid such tests if concerned about false positives. Patient was informed and verbally consented to the use of an ambient scribe for clinic note documentation during this visit. Orders: Orders Complete Blood Count Auto Diff 3 Months I10 - Essential (primary) hypertension, E78.5 - Hyperlipidemia, unspecified, R73.01 - Impaired fasting glucose, R73.03 - Prediabetes, E66.811 - Obesity, class 1 Comprehensive [place]. Panel Fast 3 Months I10 - Essential (primary) hypertension, E78.5 - Hyperlipidemia, unspecified, R73.01 - Impaired fasting glucose, R73.03 - Prediabetes, E66.811 - Obesity, class 1 UA CC w/rflx Micro + Cult 3 Months I10 - Essential (primary) hypertension, E78.5 - Hyperlipidemia, unspecified, R73.01 - Impaired fasting glucose, R73.03 - Prediabetes, E66.811 - Obesity, class 1 TSH reflex Free T4 3 Months I10 - Essential (primary) hypertension, E78.5 - Hyperlipidemia, unspecified, R73.01 - Impaired fasting glucose, R73.03 - Prediabetes, E66.811 - Obesity, class 1 Vitamin D 25-OH Total 3 Months I10 - Essential (primary) hypertension, E78.5 - Hyperlipidemia, unspecified, R73.01 - Impaired fasting glucose, R73.03 - Prediabetes, E66.811 - Obesity, class 1 Lipid Panel 3 Months I10 - Essential (primary) hypertension, E78.5 - Hyperlipidemia, unspecified, R73.01 - Impaired fasting glucose, R73.03 - Prediabetes, E66.811 - Obesity, class 1 Hemoglobin A1c 3 Months I10 - Essential (primary) hypertension, E78.5 - Hyperlipidemia, unspecified, R73.01 - Impaired fasting glucose, R73.03 - Prediabetes, E66.811 - Obesity, class 1
== END 2025-03-21 11:14 | disposition home or self-care (01) ==
LOC: HO.HMCH 10:41
DX: K64.9 Unspecified hemorrhoids (principal); R22.32 Localized swelling, mass and lump, left upper limb; M25.512 Pain in left shoulder; E66.811 Obesity, class 1; I10 Essential (primary) hypertension; E78.5 Hyperlipidemia, unspecified; R73.03 Prediabetes; D17.22 Benign lipomatous neoplasm of skin and subcutaneous tissue of left arm; Z68.31 Body mass index [BMI] 31.0-31.9, adult

== ENCOUNTER → 2025-03-21 10:40 | Outpatient (BNVA) | payer OTHER, SELFPAY | DX: R73.03 Prediabetes (principal); K64.9 Unspecified hemorrhoids; R22.32 Localized swelling, mass and lump, left upper limb; M25.512 Pain in left shoulder; E66.811 Obesity, class 1; I10 Essential (primary) hypertension; E78.5 Hyperlipidemia, unspecified; D17.22 Benign lipomatous neoplasm of skin and subcutaneous tissue of left arm; Z68.31 Body mass index [BMI] 31.0-31.9, adult | CPT/HCPCS: 99212 ==

== ENCOUNTER 2025-05-02 13:30 | Outpatient (AMB) | payer OTHER, SELFPAY ==
--- NOTE | 2025-05-02 13:40 | A.OFFVIS_ITS ---
Vital Signs 05/02/25 13:41 Height 5 ft 8.5 in Weight 212 lb BMI 31.8 BP 142/82 H Blood Pressure Location Rt brachial Position Sitting Pulse 78 Intake Visit Reasons: Excision mass lft upper limb Intake Note: Office procedure: Excision lipoma left inner forearm. Fourdrinier Operator Required: No Accompanied by: Self / Same As Patient Allergies No Known Allergies Allergy (Verified 05/02/25 13:42) HPI HPI Excision mass lft upper limb: Details: He is here for excision of a a subcutaneous mass on the forearm. [facility] Medical History (Updated 05/02/25 @ 14:46 by Pramod Guevara MD) Subcutaneous mass of left forearm Lipoma of left forearm Hemorrhoids Leukemia Surgical History History of colonoscopy Family History Mother Diabetes Social History Housing: House Alcohol intake: current Alcohol intake frequency: a few times a month Patient Tobacco Use Status: Former Tobacco user e-Cigarette/Vaping Use: Never Used Second Hand Smoke Exposure: No service: No Current occupational status: employed Current occupation: Auto dismateler Cognitive needs: No Hearing needs: No Vision needs: Yes (Reading glasses) Physical Exam Vital Signs: Last Vital Signs Pulse 78 05/02/25 13:41 BP 142/82 H 05/02/25 13:41 BMI result Body Mass Index 31.8 Office Procedures Excision Details: He was in supine position. The area of the mass on the left forearm which was anterior was prepped and draped. Lidocaine 1% was used for local anesthesia. I made a transverse incision in the skin overlying this mass with a blade 15. This carried down through the full-thickness of the skin and subcutaneous fat with sharp dissection using fine scissors until was able to visualize a mass. This mass was a well-defined, around,doughy enciso solid mass with smooth margins. I sharply dissected this off of the subcutaneous layer circumferentially and this was delivered. This was 2.2 cm in diameter. I closed the incision with full- thickness nylon 3-0 simple interrupted sutures. Dressings were applied. The procedure was completed. He tolerated the procedure well. There were no immediate complications. There was minimal blood loss. 72209-bummp/arms/legs 2.1-3cm Procedure code (CPT) selection complete Assessment & Plan Assessment & Plan (1) Subcutaneous mass of left forearm: Code(s): R22.32 - Localized swelling, mass and lump, left upper limb Category: Medical Plan: Excision was done. We will await for the path report. He was given wound care instructions. I will see him for removal of the sutures. Orders: Orders AMB Excision 05/02/25 R22.32 - Localized swelling, mass and lump, left upper limb Surgical 05/02/25 D17.22 - Benign lipomatous neoplasm of skin and subcutaneous tissue of left arm Medications: New lidocaine-epinephrine 1 %-1:100,000 20 mL Infiltration ONCE 10 mL 0RF R22.32 - Localized swelling, mass and lump, left upper limb Coding Level of Care Code Procedure Only Diagnoses Subcutaneous mass of left forearm R22.32 CPT Codes Trunk/Arms/Legs - CPT: 76244-cncmu/arms/legs 2.1-3cm ([id number])
[2025-05-02 13:41] VITALS: BP 142/82; PULSE 78; BMI 31.8
== END 2025-05-02 14:46 | disposition home or self-care (01) ==
LOC: HO.HGS 13:31
PROVIDERS: Visit Provider Surgery
DX: D17.22 Benign lipomatous neoplasm of skin and subcutaneous tissue of left arm (principal)
CPT/HCPCS: 11403

== ENCOUNTER 2025-05-02 13:30 | Outpatient (REF) | payer OTHER, SELFPAY | END 2025-05-02 13:31 | disposition home or self-care (01) | LOC: HO.LNP 13:30 | PROVIDERS: Visit Provider Surgery | DX: D17.22 Benign lipomatous neoplasm of skin and subcutaneous tissue of left arm (principal); R22.32 Localized swelling, mass and lump, left upper limb | CPT/HCPCS: 11403; 88304; 88307; 88341; 88342 ==